=== PATIENT | female | born 1930 | race Caucasian/White ===

== ENCOUNTER 2017-03-05 13:38 | Emergency (ER) | payer OTHER, MEDICARE ==
[~2017-03-05] VITALS: Ht 160 cm; Wt 83.3 kg
[~2017-03-05 13:38] MED LIST: AMLODIPINE BESYL5 MG PO; ASPIR-LOW81 MG PO; FISH OIL 1,2001 EAC4 PO; LOVASTATIN10 MG PO
[2017-03-05 14:59] LABS: HEMATOCRIT 39.2 % (36.0-46.0); HEMOGLOBIN 13.6 G/DL (11.9-15.5); MCH 31.9 PG (29.0-34.0); MCHC 34.7 G/DL (30.0-36.0); MCV 91.8 FL (83-99); PLATELET COUNT 216 K/uL (156-360); RBC DIS.WIDTH-CV 12.7 % (11.8-14.6); RBC DIS.WIDTH-SD 42.9 % (39-53); RED BLOOD COUNT 4.27 M/uL (3.80-5.20)
[2017-03-05 15:08] LABS: CHLORIDE 102 mEq/L (99-109); POTASSIUM 4.6 mEq/L (3.7-5.4); SODIUM 139 mEq/L (136-147)
[2017-03-05 15:10] LABS: GLUCOSE 119 mg/dL (70-99)
[2017-03-05 15:14] LABS: CREATININE 0.9 mg/dL (0.6-1.3); GFR ESTIMATE (CALCULATED) > 59 mL/min/; UREA NITROGEN (BUN) 22 mg/dL (9-23)
[2017-03-05 16:39] LABS: TROP-I INTERPRETATION NEGATIVE; TROPONIN-I < 0.01 ng/mL (0.0-0.30)
[2017-03-05 19:07] VITALS: BP 153/81
== END 2017-03-05 19:08 | disposition home or self-care (01) ==
LOC: EME 13:38
PROVIDERS: Emergency Medicine
DX: E86.0 Dehydration (principal); R42 Dizziness and giddiness; R10.9 Unspecified abdominal pain; I10 Essential (primary) hypertension; Z85.038 Personal history of other malignant neoplasm of large intestine; Z85.3 Personal history of malignant neoplasm of breast; Z85.828 Personal history of other malignant neoplasm of skin; Z79.82 Long term (current) use of aspirin; F17.200 Nicotine dependence, unspecified, uncomplicated
CPT/HCPCS: 80048; 84484; 85027; 93005; 99281; 99284; J7030